=== PATIENT | male | born 1990 | race Caucasian/White ===

== ENCOUNTER 2022-09-27 12:30 | Day surgery (SDC) | payer SELFPAY ==
[~2022-09-27] VITALS: Ht 185.5 cm; Wt 95.0 kg
[2022-09-27] VITALS (11 sets, daily range): BP systolic 111–142; BP diastolic 56–91
[2022-09-27 13:12] LABS: BASOPHILS % (AUTO) 1 % (0-10); EOSINOPHILS % (AUTO) 1 % (0-10); HEMATOCRIT 41 % (40-54); HEMOGLOBIN 13.3 g/dL (13.3-17.7); LYMPHOCYTES # (AUTO) 0.9 10^3/uL (1.0-4.0); LYMPHOCYTES % (AUTO) 14 % (12-44); MEAN CORPUSCULAR HEMOGLOBIN 32 pg (25-34); MEAN CORPUSCULAR HGB CONC 33 g/dL (32-36); MEAN CORPUSCULAR VOLUME 97 fL (80-99); MEAN PLATELET VOLUME 11.3 fL (9.0-12.2); MONOCYTES # (AUTO) 0.8 10^3/uL (0.0-1.0); MONOCYTES % (AUTO) 12 % (0-12); NEUTROPHILS # (AUTO) 4.6 10^3/uL (1.8-7.8); NEUTROPHILS % (AUTO) 73 % (42-75); PLATELET COUNT 87 10^3/uL (130-400); WHITE BLOOD COUNT 6.3 10^3/uL (4.3-11.0)
[2022-09-27] MEDS ORDERED: NS 100 ML (IVPB) BAG IV ONE (13:15)
[2022-09-27] MEDS ORDERED: IOHEXOL 350 MG/ML 100 ML (OMNIPAQUE 350) VIAL IV ONE (13:15)
[2022-09-27] MEDS ORDERED: NS IV 1000 ML 1,000 ML IV SCH (13:15)
[2022-09-27] MEDS ORDERED: HOLD METFORMIN - RECEIVED CONTRAST 20 ML VIAL IV SCH (13:15)
--- NOTE | 2022-09-27 13:26 | ED General ---
General Chief Complaint: Skin/Wound Problems Stated Complaint: PERINEAL ABSCESS Nursing Triage Note: PT AMBULATE TO ROOM FS06 WITHOUT DIFFICULTY FROM [facility] FOR C/O RECTAL ABSCESS "FOR A COUPLE WEEKS". PROVIDER AT [facility] STATES THEY DO NOT FEEL COMFORTABLE OPENING THE ABSCESS IN THE OFFICE. Source of Information: Patient History of Present Illness Date Seen by Provider: Sep 27, 2022 Time Seen by Provider: 12:39 Initial Comments 32-year-old male patient sent from [facility] for treatment of rectal abscess. Patient stated he has had pain in anal area for 2 weeks and drainage of pus for the last 5 or 6 days and was seen today at primary care physician office and they did not feel comfortable to drain the abscess and sent patient to ER for drainage of the abscess. Patient denies fever and chills, nausea and vomiting, history of the same problem. Patient states he has had remittent episodes of constipation. Patient admitted to drink 5-6 cans of beer every day for many years. Allergies and Home Medications Allergies Coded Allergies: No Known Drug Allergies (Unverified , 09/27/22) Patient Home Medication List Home Medication List Reviewed: Yes Albuterol Sulfate (Ventolin Hfa) 1 Puff Puff, 2 PUFF INH Q4H, (Reported) Entered as Reported by: AUSTIN MCGINNIS on 09/27/22 162 Last Action: New Order Amoxicillin/Potassium Clav (Augmentin 500-125 Tablet) 500 Mg-125 Mg Tablet, 1 EACH PO TID Prescribed by: HERNANDO ROBBINS on 09/27/22 1657 Hydrocodone Bit/Acetaminophen (HYDROcodone/APAP 10/325 TABLET) 1 Ea Tab, 1 TAB PO Q6H Prescribed by: HERNANDO ROBBINS on 09/27/22 1658 Ibuprofen (Ibu-200) 200 Mg Tablet, 200 MG PO for PAIN, (Reported) Entered as Reported by: AUSTIN MCGINNIS on 09/27/22 162 Last Action: New Order Review of Systems Review of Systems Constitutional: no symptoms reported EENTM: no symptoms reported Respiratory: no symptoms reported Cardiovascular: no symptoms reported Gastrointestinal: no symptoms reported Genitourinary: see HPI Musculoskeletal: no symptoms reported Skin: see HPI Psychiatric/Neurological: No Symptoms Reported Hematologic/Lymphatic: No Symptoms Reported All Other Systems Reviewed Negative Unless Noted: Yes Past Kubzxuz-Sppgxn-Okmubf Hx Patient Social History Tobacco Use?: No Smoking Status: Never a Smoker Smokeless Tobacco Frequency: Never a User Use of E-Cig and/or Vaping dev: No Use of E-Cig and/or Vaping Filipe: Never a User Substance use?: No Alcohol Use?: Yes Alcohol type: Beer Alcohol Frequency: Daily Pt feels they are or have been: No Physical Exam Vital Signs Vital Signs - First Documented 09/27/22 12:35 Temp 36.9 Pulse 116 B/P (MAP) 149/81 (103) O2 Delivery Room Air Capillary Refill : Less Than 3 Seconds Height, Weight, BMI Height: '" Weight: lbs. oz. kg; 27.00 BMI Method: General Appearance: WD/WN, Mild Distress Eyes: Bilateral Eye Normal Inspection, Bilateral Eye Scleral Icterus HEENT: PERRL/EOMI Neck: Full Range of Motion, Normal Inspection, Non Tender Respiratory: Chest Non Tender, Lungs Clear, Normal Breath Sounds, No Accessory Muscle Use Cardiovascular: No Edema, No Gallop, No JVD, No Murmur, Normal Peripheral Pulses, Tachycardia Gastrointestinal: Normal Bowel Sounds, No Organomegaly, No Pulsatile Mass, Non Tender, Soft Rectal: Other (Rectal exam in presence of presidential helicopter crew chief showed left perianal induration and fluctuation area with tenderness and right perianal fistula tract with drainage of pus.) Focused Exam Lactate Level 09/27/22 12:57: Lactic Acid Level 1.68 Lactic Acid Level Laboratory Tests Test 09/27/22 12:57 Lactic Acid Level 1.68 MMOL/L (0.50-2.00) Progress/Results/Core Measures Suspected Sepsis SIRS Temperature: Pulse: 116 Respiratory Rate: Laboratory Tests 09/27/22 12:57: White Blood Count 6.3 Blood Pressure 149 /81 Mean: 103 09/27/22 12:57: Lactic Acid Level 1.68 Laboratory Tests 09/27/22 12:57: Creatinine 0.50L, INR Comment 1.2, Platelet Count 87L, Total Bilirubin 4.8H Results/Orders Lab Results Laboratory Tests Test 09/27/22 12:57 Range/Units White Blood Count 6.3 4.3-11.0 10^3/uL Red Blood Count 4.21 L 4.30-5.52 10^6/uL Hemoglobin 13.3 13.3-17.7 g/dL Hematocrit 41 40-54 % Mean Corpuscular Volume 97 80-99 fL Mean Corpuscular Hemoglobin 32 25-34 pg Mean Corpuscular Hemoglobin Concent 33 32-36 g/dL Red Cell Distribution Width 14.5 10.0-14.5 % Platelet Count 87 L 130-400 10^3/uL Mean Platelet Volume 11.3 9.0-12.2 fL Immature Granulocyte % (Auto) 0 % Neutrophils (%) (Auto) 73 42-75 % Lymphocytes (%) (Auto) 14 12-44 % Monocytes (%) (Auto) 12 0-12 % Eosinophils (%) (Auto) 1 0-10 % Basophils (%) (Auto) 1 0-10 % Neutrophils # (Auto) 4.6 1.8-7.8 10^3/uL Lymphocytes # (Auto) 0.9 L 1.0-4.0 10^3/uL Monocytes # (Auto) 0.8 0.0-1.0 10^3/uL Eosinophils # (Auto) 0.0 0.0-0.3 10^3/uL Basophils # (Auto) 0.0 0.0-0.1 10^3/uL Immature Granulocyte # (Auto) 0.0 0.0-0.1 10^3/uL Percent Immature Platelet Fraction 8.0 H 0.0-7.6 % Prothrombin Time 15.5 H 12.2-14.7 SEC INR Comment 1.2 0.8-1.4 Activated Partial Thromboplast Time 37 H 24-35 SEC Sodium Level 135 135-145 MMOL/L Potassium Level 3.9 3.6-5.0 MMOL/L Chloride Level 97 L 98-107 MMOL/L Carbon Dioxide Level 22 21-32 MMOL/L Anion Gap 16 H 5-14 MMOL/L Blood Urea Nitrogen 5 L 7-18 MG/DL Creatinine 0.50 L 0.60-1.30 MG/DL Estimat Glomerular Filtration Rate 141 BUN/Creatinine Ratio 10 Glucose Level 111 H 70-105 MG/DL Lactic Acid Level 1.68 0.50-2.00 MMOL/L Calcium Level 9.4 8.5-10.1 MG/DL Corrected Calcium 9.9 8.5-10.1 MG/DL Total Bilirubin 4.8 H 0.1-1.0 MG/DL Aspartate Amino Transf (AST/SGOT) 154 H 5-34 U/L Alanine Aminotransferase (ALT/SGPT) 51 0-55 U/L Alkaline Phosphatase 182 H 40-136 U/L Total Protein 9.2 H 6.4-8.2 GM/DL Albumin 3.4 3.2-4.5 GM/DL My Orders Orders - GABRIEL REVELES MD Cbc With Automated Diff (09/27/22 12:54) Comprehensive Metabolic Panel (09/27/22 12:54) Ed Iv/Invasive Line Start (09/27/22 12:54) Lactic Acid Analyzer (09/27/22 12:54) Ct Pelvis W (09/27/22 12:54) Ns Iv 1000 Ml (Sodium Chloride 0.9%) (09/27/22 13:15) Iohexol Injection (Omnipaque 350 Mg/Ml 1 (09/27/22 13:15) Received Contrast (Hold Metformin- Contr (09/27/22 13:15) Ns (Ivpb) 100 Ml (Sodium Chloride 0.9% 1 (09/27/22 13:15) Protime With Inr (09/27/22 13:38) Partial Thromboplastin Time (09/27/22 13:38) Medications Given in ED Current Medications Medications Dose Ordered Sig/Daniel Route Start Time Stop Time Status Last Admin Dose Admin Iohexol 100 ml ONCE ONCE IV 09/27/22 13:15 09/27/22 13:16 DC 09/27/22 13:25 75 ML Sodium Chloride 100 ml ONCE ONCE IV 09/27/22 13:15 09/27/22 13:16 DC 09/27/22 13:25 100 ML Vital Signs/I&O 09/27/22 12:35 Temp 36.9 Pulse 116 B/P (MAP) 149/81 (103) O2 Delivery Room Air Capillary Refill : Less Than 3 Seconds Blood Pressure Mean: 103 Progress Note : Progress Note Patient with anal fistula and abscess sent from PCP office for drainage of abscess. Because of anal fistula on-call surgeon Dr. Robbins was consulted at 1254 and recommended labs and CT that showed rectal abscess and fistula. CBC and CMP and lactic acid was ordered and reviewed by me and showed elevation of liver function test with normal white count and lactic acid. Dr. Robbins was consulted at 1049 and he recommended to discharge patient from ER and sent as outpatient recommended patient and his brother informed about the plan of care and is to go to outpatient surgical center and not eating or drinking anything to able to have surgery today. Patient did not want to have pain medication in ER. Diagnostic Imaging Diagonstic Imaging: CT Plain Films/CT/US/NM/MRI: pelvis Comments CT pelvis interpreted by radiologist and reviewed by me and showed: [facility] [place], [place] NAME: TEJA العلي [facility] REC#: [id number] PT STATUS: REG ER : 1990 PHYSICIAN: GABRIEL REVELES MD ADMIT DATE: 09/27/22/ER FS Draft Date of Exam:09/27/22 CT PELVIS W PROCEDURE: CT pelvis with contrast. TECHNIQUE: Oral and intravenous contrast were administered with pelvic CT performed. Auto Exposure Controls were utilized during the CT exam to meet ALARA standards for radiation dose reduction. INDICATION: Perirectal abscess There is a bilobed collection of gas and fluid along the posterior perineum involving subcutaneous tissues, greater on the left. Pocket of fluid on the left measures 5.4 x 1.7 cm with contralateral pocket measuring 2.9 x 1.2 cm. There is mild surrounding edema and inflammation without significant extension into the ischial rectal fossa. There is no evidence of free fluid or abscess within the pelvis. Partially opacified urinary bladder is unremarkable. No bone destruction. IMPRESSION: Posterior peroneal abscess extending greater on the left. This is just posterior to the anus without significant ischial rectal or intrapelvic involvement. Dictated on workstation # [id number] Dict: 09/27/22 1337 Trans: 09/27/22 1353 [facility] [id number] Interpreted by: ALINA BENAVIDES MD Electronically signed by: Consults Consults : Consults Notes On-call surgeon Dr. Robbins was consulted at 3454 and recommended to obtain blood test and CT of pelvis and inform him again. He was consulted at 7569 and informed about test result and he recommended to discharge patient from emergency room and sent him to outpatient surgery center with emphasizing on not eating or drinking anything for outpatient surgical treatment of perianal abscess and fistula. Departure Impression Primary Impression: Perirectal fistula Additional Impressions: Perianal abscess Jaundice Elevated liver function tests Alcohol abuse Disposition: HOME, SELF-CARE (To go to outpatient surgery center) Condition: Stable Departure-Patient Inst. Decision time for Depature: 14:17 Referrals: DARIN TERRELL MD (PCP) Primary Care Physician HERNANDO ROBBINS DO Patient Instructions: Anal Abscess and Fistula, Adult (DC) Add. Discharge Instructions: Do not or drink anything Go to outpatient surgery center to have surgery with Dr. Robbins today Follow-up with instruction of Dr. Robbins after surgery All discharge instructions reviewed with patient and/or family. Voiced understanding. Scripts Amoxicillin/Potassium Clav (Augmentin 500-125 Tablet) 500 Mg-125 Mg Tablet 1 EACH PO TID, #21 TAB Prov: HERNANDO ROBBINS DO 09/27/22 Hydrocodone Bit/Acetaminophen (HYDROcodone/APAP 10/325 TABLET) 1 Ea Tab 1 TAB PO Q6H for PAIN-MODERATE MDD 5, #30 TAB 0 Refills Prov: HERNANDO ROBBINS DO 09/27/22 GABRIEL REVELES MD Sep 27, 2022 13:26
[2022-09-27 13:27] LABS: BILIRUBIN,TOTAL 4.8 MG/DL (0.1-1.0); CALCIUM 9.4 MG/DL (8.5-10.1); CREATININE SERUM 0.5 MG/DL (0.60-1.30); POTASSIUM 3.9 MMOL/L (3.6-5.0); TOTAL PROTEIN 9.2 GM/DL (6.4-8.2)
[2022-09-27 13:28] LABS: ALBUMIN 3.4 GM/DL (3.2-4.5)
[2022-09-27 13:51] LABS: INR 1.2 (0.8-1.4); PROTHROMBIN TIME PATIENT 15.5 SEC (12.2-14.7)
--- NOTE | 2022-09-27 13:53 | Diagnostic Imaging Report ---
PROCEDURE: CT pelvis with contrast. TECHNIQUE: Oral and intravenous contrast were administered with pelvic CT performed. Auto Exposure Controls were utilized during the CT exam to meet ALARA standards for radiation dose reduction. INDICATION: Perirectal abscess There is a bilobed collection of gas and fluid along the posterior perineum involving subcutaneous tissues, greater on the left. Pocket of fluid on the left measures 5.4 x 1.7 cm with contralateral pocket measuring 2.9 x 1.2 cm. There is mild surrounding edema and inflammation without significant extension into the ischial rectal fossa. There is no evidence of free fluid or abscess within the pelvis. Partially opacified urinary bladder is unremarkable. No bone destruction. IMPRESSION: Posterior peroneal abscess extending greater on the left. This is just posterior to the anus without significant ischial rectal or intrapelvic involvement. Dictated by: Dictated on workstation # [id number]
[2022-09-27] MEDS ORDERED: LIDOCAINE 1% w/EPI 1:100,000 20 ML VIAL ONE (14:53)
[2022-09-27] MEDS: LACTATED RINGERS 1,000 ML IV PRN ×3 (15:10→17:05)
[2022-09-27] MEDS: cefTRIAXone IV/IM 1,000 MG in NS (IVPB) 50 ML 50 ML IV ONE ×2 (15:15→16:10)
[2022-09-27] MEDS ORDERED: NS (IVPB) 50 ML 50 ML ONE (16:09)
[2022-09-27] MEDS ORDERED: cefTRIAXone 1,000 MG VIAL IV/IM ONE (16:09)
[2022-09-27] MEDS ORDERED: fentaNYL INJECTION 100 MCG/2 ML VIAL ONE (16:15)
[2022-09-27] MEDS ORDERED: MIDAZOLAM INJ 2 MG/2 ML VIAL ONE (16:15)
[2022-09-27] MEDS ORDERED: RT-ALBUINH INH (16:22)
[2022-09-27] MEDS ORDERED: IBUP-48 PO (16:23)
--- NOTE | 2022-09-27 16:25 | Consultation - Surgery ---
History of Present Illness History of Present Illness Patient Consulted On(jose/time) 09/27/22 16:20 Time Seen by Provider: 16:07 History of Present Illness Pt sent down from [facility] ER for ophelia-rectal abscess. States is began 2-3 weeks ago and progressively got worse. He denied trauma to area or any previous episode like this. He had been constipated and thought it was hemorrhoids, has been using Preparation H. Describes a throbbing sensation and rated pain as 5-6 out of 10. Plz see paper H&P for more detail. Allergies and Home Medications Allergies Coded Allergies: No Known Drug Allergies (Unverified , 09/27/22) Patient Home Medication List Home Medication List Reviewed: Yes Past Olsgcyo-Qmxjli-Vrywui Hx Patient Social History Smoking Status: Never a Smoker Alcohol Use?: Yes Surgeries History of Surgeries: No Respiratory History of Respiratory Disorde: Yes Respiratory Disorders: Asthma Cardiovascular History of Cardiac Disorders: No Neurological History of Neurological Disord: No Reproductive System Hx Reproductive Disorders: No Genitourinary History of Genitourinary Disor: No Gastrointestinal History of Gastrointestinal Di: No Musculoskeletal History of Musculoskeletal Dis: No Endocrine History of Endocrine Disorders: No HEENT History of HEENT Disorders: No Loss of Vision: Denies Hearing Impairment: Denies Cancer History of Cancer: No Psychosocial History of Psychiatric Problem: Yes (Panic attacks) Behavioral Health Disorders: Anxiety Integumentary History of Skin or Integumenta: Yes Skin/Integumentary Disorders: Psoriasis Family Medical History Significant Family History: Cancer (Grandmother), CAD Under 55 Years Old (father had stenting, grandfather [place]) Review of Systems-General Constitutional: fever, malaise Respiratory: No cough, No dyspnea on exertion Cardiovascular: No chest pain, No palpitations Gastrointestinal: No abdominal pain, No nausea, No vomiting; other (rectal pain) Genitourinary: No dysuria, No frequency, No hematuria Musculoskeletal: No joint pain, No joint swelling, No muscle stiffness Skin: change in color; No change in hair/nails Psychiatric/Neurological: Anxiety, Emotional Problems; Denies Seizure, Denies Tremors Physical Exam-General Problems Physical Exam Vital Signs Vital Signs - First Documented 09/27/22 12:35 Temp 36.9 Pulse 116 B/P (MAP) 149/81 (103) O2 Delivery Room Air Capillary Refill : Less Than 3 Seconds General Appearance: mild distress (secondary pain and anxiety) Eyes: Bilateral Eye EOMI HEENT: pharynx normal; No scleral icterus (R), No scleral icterus (L) Neck: non-tender, supple Respiratory: lungs clear, normal breath sounds, no respiratory distress, no accessory muscle use Cardiovascular: no murmur, tachycardia Gastrointestinal: non tender, soft, no organomegaly Rectal: other (ophelia-rectal abscess) Back: no CVA tenderness, no vertebral tenderness Extremities: no pedal edema, no calf tenderness, normal capillary refill Neurologic/Psychiatric: alert, oriented x 3, other (anxious) Skin: normal color, warm/dry, other (except ophelia-rectal) Lymphatic: no adenopathy (neck, supraclavicular and axilla) Data Review Labs Laboratory Tests 09/27/22 12:57: White Blood Count 6.3, Red Blood Count 4.21L, Hemoglobin 13.3, Hematocrit 41, Mean Corpuscular Volume 97, Mean Corpuscular Hemoglobin 32, Mean Corpuscular Hemoglobin Concent 33, Red Cell Distribution Width 14.5, Platelet Count 87L, Mean Platelet Volume 11.3, Immature Granulocyte % (Auto) 0, Neutrophils (%) (Auto) 73, Lymphocytes (%) (Auto) 14, Monocytes (%) (Auto) 12, Eosinophils (%) (Auto) 1, Basophils (%) (Auto) 1, Neutrophils # (Auto) 4.6, Lymphocytes # (Auto) 0.9L, Monocytes # (Auto) 0.8, Eosinophils # (Auto) 0.0, Basophils # (Auto) 0.0, Immature Granulocyte # (Auto) 0.0, Percent Immature Platelet Fraction 8.0H, Prothrombin Time 15.5H, INR Comment 1.2, Activated Partial Thromboplast Time 37H , Sodium Level 135, Potassium Level 3.9, Chloride Level 97L, Carbon Dioxide Level 22, Anion Gap 16H, Blood Urea Nitrogen 5L, Creatinine 0.50L, Estimat Glomerular Filtration Rate 141, BUN/Creatinine Ratio 10, Glucose Level 111H, Lactic Acid Level 1.68, Calcium Level 9.4, Corrected Calcium 9.9, Total Bilirubin 4.8H, Aspartate Amino Transf (AST/SGOT) 154H, Alanine Aminotransferase (ALT/SGPT) 51, Alkaline Phosphatase 182H, Total Protein 9.2H, Albumin 3.4 Radiology Date of Exam:09/27/22 CT PELVIS W PROCEDURE: CT pelvis with contrast. TECHNIQUE: Oral and intravenous contrast were administered with pelvic CT performed. Auto Exposure Controls were utilized during the CT exam to meet ALARA standards for radiation dose reduction. INDICATION: Perirectal abscess There is a bilobed collection of gas and fluid along the posterior perineum involving subcutaneous tissues, greater on the left. Pocket of fluid on the left measures 5.4 x 1.7 cm with contralateral pocket measuring 2.9 x 1.2 cm. There is mild surrounding edema and inflammation without significant extension into the ischial rectal fossa. There is no evidence of free fluid or abscess within the pelvis. Partially opacified urinary bladder is unremarkable. No bone destruction. IMPRESSION: Posterior peroneal abscess extending greater on the left. This is just posterior to the anus without significant ischial rectal or intrapelvic involvement. Dictated by: Dictated on workstation # [id number] Dict: 09/27/22 1337 Trans: 09/27/22 1537 CVB [id number] Interpreted by: ALINA BENAVIDES MD Electronically signed by: ALINA BENAVIDES MD 09/27/22 1537 Assessment/Plan Assessment/Plan Assessment/Plan Ophelia-rectal abscess Plan to OR for Incision and Drainage with possible debridement, possible packing. Will get consent and start IV fluids, pain control and ABX cert occupational therapy asst to OR. Discussed risks and complications, not limited to pain, bleeding, infection and scar with possible need for further debridement. I reviewed the CT myself and discussed case with ED physician. HERNANDO ROBBINS DO Sep 27, 2022 16:25
[2022-09-27] MEDS ORDERED: proPOfol 200 MG/20 ML (DIPRIVAN) VIAL IV ONE (16:38)
[2022-09-27] MEDS ORDERED: ONDANSETRON 4 MG/2 ML (SDV) Z0FRAN ONE (16:38)
[2022-09-27] MEDS ORDERED: SEVOFLURANE (ULTANE) 15 ML INHAL SOLN ONE (16:38)
[2022-09-27] MEDS ORDERED: dexAMETHasone INJ 10 MG/ML 1 ML VIAL ONE (16:38)
[2022-09-27] MEDS ORDERED: SUCCINYLCHOLINE INJ 20 MG/1 ML 10 ML VIAL ONE (16:38)
[2022-09-27] MEDS ORDERED: ROCURONIUM 50 MG/5 ML (ZEMURON) VIAL IV ONE (16:38)
[2022-09-27] MEDS ORDERED: LIDOCAINE 1% w/EPI 1:100,000 20 ML VIAL INJ ONE (16:47)
--- NOTE | 2022-09-27 16:56 | Progress Note-Post Operative ---
Post-Operative Progess Note Surgeon (s)/Swimming Pool Service Technician (s) Surgeon HERNANDO ROBBINS DO Swimming Pool Service Technician: [place] Fabian Pre-Operative Diagnosis perirectal absecess Post-Operative Diagnosis Geeta-Anal abscess Procedure & Operative Findings Date of Procedure 09/27/22 Procedure Performed/Findings I&D geeta-anal abscess with packing Anesthesia Type GET Estimated Blood Loss Estimated blood loss (mL): minimal Specimens/Packing Specimens Removed purulent fluid for culture HERNANDO ROBBINS DO Sep 27, 2022 16:56
[2022-09-27] MEDS ORDERED: AMOX-355 PO (16:57)
[2022-09-27] MEDS ORDERED: ACHYD1T PO (16:57)
--- NOTE | 2022-09-27 16:59 | Discharge Inst-Surgical ---
Discharge Inst-Surgical Depart Medication/Instructions New, Converted or Re-Newed RX: Transmitted to Pharmacy Patient Instructions Follow up Appt: Make appointment for 1 week. [phone] Instructions: No lifting greater than 20 pounds. No strenuous activity. May shower in 24 hours, no tub bath or soaking. Use incentive spirometer at home as directed. No Smoking Skin/Wound Care: May remove bandages in am. You need to change packing daily. Symptoms to Report: Appetite Changes, Extremity Discoloration, Numbness/Tingling, Swelling Increased, Bleeding Excessive, Eyesight Changes, Pain Increased, Urine Color Change, Constipation(Persistent), Fever over 101 degree F, Pain/Pressure in chest, Urinating Difficulty, Cough Up/Vomit Blood, Heart Beat Irreg/Pounding, Pain/Pressure in jaw, Cramps in feet or legs, Lightheadedness, Pain/Pressure in shoulder, Diarrhea(Persistent), Memory Changes Suddenly, Questions/Concerns, Weight gain consecutive days, Dizziness/Fainting, Nausea/Vomiting, Shortness of Breath, Weight gain over 2 pounds If questions or concerns contact your physician Or seek help at emergency department. Activity Activity as Tolerated: Yes Activity Instructions: Avoid Stress to Incision Driving Instructions: No Driving/Refer to Dr. Humphreys Discharge Diet: No Restrictions Diet After 24 Hours: Clear Liquid if Nauseous If Any Problems/Questions/Issu: Contact Your Physician, Go to Emergency Room Skin/Wound Care Infection Signs and Symptoms: Increased Redness, Foul Odor of Wound, Increased Drainage, Skin Itchy or Has a Rash, Increased Swelling, Temperature Above 101 F Bathing Instructions: HERNANDO Montana DO Sep 27, 2022 16:59
--- NOTE | 2022-09-27 17:03 | Anesthesia-General Post-Op ---
General Patient Condition Mental Status/LOC: Same as Preop Cardiovascular: Satisfactory Nausea/Vomiting: Absent Respiratory: Satisfactory Pain: Controlled Complications: Absent Post Op Complications Complications None Follow Up Care/Instructions Patient Instructions None needed. Anesthesia/Patient Condition Patient Condition Patient is doing well, no complaints, stable vital signs, no apparent adverse anesthesia problems. No complications reported per nursing. DIANDRA DUNCAN CRNA Sep 27, 2022 17:03
[2022-09-27] MEDS ORDERED: morphine INJ 10 MG/ML 1ML (SYR OR VIAL) ONE (17:14)
[2022-09-27] MEDS ORDERED: HYDROmorphone INJECTION 2 MG/ML VIAL IV ONE (17:15)
[2022-09-27] MEDS ORDERED: morphine INJ 10 MG/ML 1ML (SYR OR VIAL) IVP ONE (17:15)
[2022-09-27] MEDS ORDERED: ONDANSETRON 4 MG/2 ML (SDV) Z0FRAN IVP PRN (17:15)
[2022-09-27] MEDS ORDERED: fentaNYL INJECTION 100 MCG/2 ML VIAL IVP ONE (17:15)
--- NOTE | 2022-10-09 15:28 | OPERATIVE REPORT ---
DATE OF SERVICE: 09/27/2022 PREOPERATIVE DIAGNOSIS: Perirectal abscess. POSTOPERATIVE DIAGNOSIS: Perianal abscess. PROCEDURE: Incision and drainage of perianal abscess with packing as well as a rectal exam under anesthesia. SURGEON: Andrew Robbins DO DRY WALL APPLICATOR: ALEKSANDAR Galarza. ANESTHESIA: General endotracheal tube. BLOOD LOSS: Minimal. FLUIDS: Per anesthesia. SPECIMENS: A culture of purulent fluid sent to pathology. INDICATIONS FOR PROCEDURE: The patient is a 32-year-old male with complaints of swelling, tenderness, abscess, had a CT performed, which showed an abscess looked to be posterior, but was actually anterior in between the scrotum and the anus, purulent fluid found. DESCRIPTION OF PROCEDURE: After informed consent was obtained, the patient was brought to the operating room and placed on the table in lithotomy position. He was then sterilely prepped and draped in normal fashion. Local lidocaine used to infiltrate the area above this. This tenderness in the area of fluctuance appeared to be on the right and left side. I used a speculum to look on the inside of the rectum. I did not see any fistula palpated around, did not feel anything. At this point, then elected to use a #15 blade to make an incision, made incision on the right and left side got out purulent fluid. This tunneled up towards the rectum, but did not get into the ischiorectal fossa, foul-smelling purulent fluid, obtained a culture, copiously irrigated with normal saline and then did the same on the other side, it did not tunnel as far and area was then flushed with saline as well. At this point, then elected to pack with iodoform packing. Area was then cleaned and dried, dressings placed. The patient tolerated the procedure and transferred to recovery room in stable condition. Sponge and needle counts correct at the end of the case. Job ID: [id number] DocumentID: [id number] Dictated Date: 10/09/2022 11:38:04 Glass Cutting Machine Feeder Date: 10/09/2022 15:25:00 Dictated By: ANDREW ROBBINS DO [facility]
== END 2022-09-27 19:35 ==
LOC: ER FS 12:33 → SDC 15:30
PROVIDERS: ATTEND Surgery
DX: K61.1 Rectal abscess (principal); R17 Unspecified jaundice; R79.89 Other specified abnormal findings of blood chemistry; F10.10 Alcohol abuse, uncomplicated
CPT/HCPCS: 36415; 72193; 80053; 83605; 85025; 85610; 85730; 87070; 87075; 87076; 87081; 87185; 87205; Q9967